=== PATIENT | female | born 1955 | race Caucasian/White ===

== ENCOUNTER → 2019-03-22 | Outpatient (CLI) | payer OTHER | END | disposition home or self-care (01) | LOC: CFH 09:50 | PROVIDERS: ATTEND Internal Medicine | DX: M16.12 Unilateral primary osteoarthritis, left hip (principal); M25.552 Pain in left hip; M51.37 Other intervertebral disc degeneration, lumbosacral region; M25.752 Osteophyte, left hip; M51.36 Other intervertebral disc degeneration, lumbar region | CPT/HCPCS: 72110 ==

== ENCOUNTER → 2020-10-08 | Outpatient (CLI) | payer BC | END | disposition home or self-care (01) | LOC: CFH 15:55 | PROVIDERS: ATTEND Internal Medicine | DX: Z12.31 Encounter for screening mammogram for malignant neoplasm of breast (principal) | CPT/HCPCS: 77067 ==

== ENCOUNTER → 2020-11-26 | Outpatient (CLI) | payer BC | END | disposition home or self-care (01) | LOC: RAD 15:04 | PROVIDERS: ATTEND Emergency Medicine | DX: N23 Unspecified renal colic (principal); M54.9 Dorsalgia, unspecified | CPT/HCPCS: 76770 ==